=== PATIENT | male | born 1980 | race Two or more races ===

== ENCOUNTER 2020-05-13 19:50 | Emergency (ER) | payer SELFPAY ==
[~2020-05-13] VITALS: Ht 172.7 cm; Wt 75.0 kg
[2020-05-13 20:20] VITALS: BP 141/69
== END 2020-05-13 20:43 | disposition left against medical advice (07) ==
LOC: ER 19:50
DX: Z53.21 Procedure and treatment not carried out due to patient leaving prior to being seen by health care provider (principal)